=== PATIENT | female | born 1975 | race Caucasian/White ===

== ENCOUNTER 2017-07-03 15:29 | Emergency (ER) | payer MEDICARE, BC ==
[2017-07-03 16:15] VITALS: TEMP 98.2
[2017-07-03] MEDS ORDERED: MECLIZINE HYDROCHLORIDE 12.5 MG TAB PO ONE (16:15)
[2017-07-03] MEDS ORDERED: ACETAMINOPHEN 500 MG 500 MG TAB PO ONE (16:15)
[2017-07-03] MEDS ORDERED: KETOROLAC TROMETHAMINE 30 MG/ML SOL IM ONE (16:15)
[2017-07-03] MEDS ORDERED: ONDANSETRON 4 MG ODT BU ONE (16:15)
[2017-07-03] MEDS ORDERED: ONDANSETRON 4 MG ODT ONE (16:19)
[2017-07-03] MEDS ORDERED: KETOROLAC TROMETHAMINE 30 MG/ML SOL ONE (16:19)
[2017-07-03] MEDS ORDERED: ACETAMINOPHEN 500 MG 500 MG TAB ONE (16:20)
[2017-07-03] MEDS ORDERED: MECLIZINE HYDROCHLORIDE 12.5 MG TAB ONE (16:20)
[2017-07-03 17:40] VITALS: RESP 13
[2017-07-03 17:41] VITALS: BP 116/66; PULSE 73; O2SAT 98
== END 2017-07-03 17:30 | disposition home or self-care (01) | DRG 103 ==
LOC: ED 15:29
DX: R51 Headache (principal); R11.2 Nausea with vomiting, unspecified; R42 Dizziness and giddiness; R68.84 Jaw pain; Z98.890 Other specified postprocedural states
CPT/HCPCS: 96372; 99283; 99284; J1885